=== PATIENT | male | born 1960 | race Caucasian/White ===

== ENCOUNTER 2019-08-06 03:09 | Emergency (ER) ==
[2019-08-06] MEDS ORDERED: IPRATROPIUM/ALBUTEROL 0.5-2.5 MG/3 ML AMPUL NEB ONE (03:25)
--- NOTE | 2019-08-06 17:06 | EKG REPORT ---
SEVERITY:- ABNORMAL ECG - SINUS TACHYCARDIA NONSPECIFIC T ABNORMALITIES, INFERIOR LEADS : Confirmed by: Faith Steinberg MD 06-Aug-2019 17:06:29
== END 2019-08-06 04:55 | disposition left against medical advice (07) ==
LOC: ER 03:09
DX: Z53.21 Procedure and treatment not carried out due to patient leaving prior to being seen by health care provider (principal); R06.02 Shortness of breath
CPT/HCPCS: 93005; 93010